=== PATIENT | male | born 1955 ===

== ENCOUNTER 2022-07-01 15:33 | Emergency (ER) | payer OTHER, SELFPAY ==
[2022-07-01] VITALS (9 sets, daily range): BP systolic 127–154; BP diastolic 72–96; PULSE 62–83; RESP 11–18; TEMP 36.6; O2SAT 98–100
--- NOTE | ~2022-07-01 | CT_ITS ---
EXAMINATION: CTA chest PE protocol DATE: 07/01/2022 19:45 INDICATION: left sided cp, sob, elevated dimer TECHNIQUE: Computed tomography angiography (CTA) of the chest was performed with 100 mL Omnipaque-350 intravenous contrast timed to evaluate the pulmonary arteries. Coronal maximum intensity projection 3D-reconstructions were created by the technologist. The dose-length product (DLP) was 174.96 mGy-cm. Automated exposure control and iterative reconstruction technique were employed. COMPARISON: None. FINDINGS: Lung parenchyma and airways: Dependent atelectasis. Left apical nodular opacity, likely apical scar o r intrapulmonary lymph node.. Pleura: Unremarkable. Thoracic inlet, axillae and chest wall: Unremarkable. Thoracic aorta: Normal. Mediastinum: Normal. Heart and pericardium: Mild cardiomegaly. Coronary artery calcifications: Absent. Upper abdomen: No significant finding. Incidental 5.1 cm right renal cyst. Bones: No acute osseous finding. Pulmonary arteries: Study quality: Adequate. No pulmonary emboli detected. IMPRESSION: No CT evidence of acute pulmonary embolus. Reviewed, dictated and finalized at location [facility]. [facility] OPERATION EVALUATION MANAGER
--- NOTE | 2022-07-01 15:34 | ECG_ITS ---
Measurements Intervals [place] Rate: 77 P: 69 AL: 173 QRS: 58 QRSD: 93 T: 49 QT: 371 QTc: 422 Interpretive Statements SINUS RHYTHM NONSPECIFIC T-WAVE ABNORMALITY BORDERLINE ECG NO PREVIOUS ECG AVAILABLE FOR COMPARISON Electronically Signed On 07-01-2022 18:06:51 SCREEN PRINTING PASTER by Kam Vines M.D.
[2022-07-01 15:52] LABS: Basophils Percent Auto 0.5 % (0.2-1.2); Eosinophils Absolute Auto 0.1 K/mm3 (0-0.3); Eosinophils Percent Auto 1.3 % (0-4.4); Hemoglobin 15.1 g/dL (14.0-18.0); Immature Granulocyte Absolute 0.01 K/mm3 (0.00-0.031); Immature Granulocyte Percent A 0.2 % (0-0.5); Lymphocytes Absolute Auto 1.67 K/mm3 (0.9-3.2); Mean Corpuscular HGB Conc 32.1 g/dl (32-36); Mean Corpuscular Hemoglobin 29.2 pg (26-34); Mean Corpuscular Volume 90.9 fl (80-100); Mean Platelet Volume 9.3 fl (7.4-10.4); Monocytes Absolute Auto 0.6 K/mm3 (0.1-0.6); Monocytes Percent Auto 9.7 % (2.6-8.5); Neutrophils Absolute Auto 3.6 K/mm3 (1.3-6.7); Neutrophils Percent Auto 60.3 % (45.5-73.1); Platelet Count Result 284 k/mm3 (150-375); Red Blood Count 5.17 M/mm3 (4.6-6.20); Red Cell Distribution Width 13.5 % (11.5-14.5)
[2022-07-01 16:04] LABS: Partial Thromboplastin Time 27.7 SECONDS (22.3-36.8); Prothrombin Time 12.6 Seconds (11.1-14.7)
[2022-07-01 16:06] LABS: Alanine Aminotransferase 36 U/L (6-50); Albumin Level 4.6 g/dL (3.5-5.1); Alkaline Phosphatase 70 U/L (38-126); Anion Gap 4 mmol/L (8-16); Aspartate Amino Transferase 30 U/L (17-59); Bilirubin,Total 0.5 mg/dL (0.2-1.3); Blood Urea Nitrogen 18 mg/dL (9-20); Calcium 9.1 mg/dL (8.4-10.2); Carbon Dioxide 30 mmol/L (22-30); Chloride 103 mmol/L (98-107); Estimated CRCL calculation 60 ml/min; Estimated Glomerular Filt Rate > 60; Glucose 104 mg/dL (65-110); Lipase 107 U/L (23-300); Potassium 3.9 mmol/L (3.4-5.0); Sodium 137 mmol/L (137-145)
[2022-07-01 16:16] LABS: Troponin I < 0.012 ng/mL (0.000-0.034)
[2022-07-01] MEDS: ASPIRIN 81 MG CHEWABLE TABLET 324 MG PO (17:36)
--- NOTE | 2022-07-01 18:17 | ED.CHESTPAIN ---
HPI - Chest Pain General Chief Complaint: Chest Pain Stated Complaint: chest pain Time Seen by Provider: 07/01/22 18:16 Source: patient Mode of arrival: ambulatory Limitations: no limitations History of Present Illness HPI narrative: This is a 66-year-old male that presents to the emergency department for chest pain ongoing over the last week. Reports a dull achy left-sided chest pain. Intermittently it is sharp. It is worse with certain movements and coughing. Reports over the last month he has been struggling with bronchitis. He has finished a round of steroids and antibiotics. He still does continue to have some cough. Reports he has been having some shortness of breath as well. He was seen at the urgent care and sent to the ER for further evaluation. Denies fevers or hemoptysis. Related Data Allergies Allergy/AdvReac Type Severity Reaction Status Date / Time No Known Allergies Allergy Verified 07/01/22 17:17 Review of Systems Review of Systems: CONSTITUTIONAL: Denies fever CARDIOVASCULAR: Reports chest pain. Denies edema. RESPIRATORY: Reports cough and dyspnea. All systems reviewed & are unremarkable except as noted in HPI and below PMFSH Past Medical History Medical History (Updated 07/01/22 @ 20:44 by Leyla Dale PA-C) History of hyperlipidemia History of hypertension Social History Social History (Updated 07/01/22 @ 18:56 by Leyla Dale PA-C) Smoking status: Former smoker Exam Narrative: GENERAL: Well-appearing, well-nourished, and in no acute distress. HEAD: Normocephalic, atraumatic. EYES: EOMI. ENT: Mucous membranes moist. CHEST: Clear to auscultation. No respiratory distress. No wheezes rales or rhonchi HEART: Regular rate and rhythm. No murmur heard. Normal peripheral pulses. EXTREMITIES: Normal range of motion. No edema. SKIN: Warm, dry, no rash. NEURO: No focal deficits. Alert and oriented x3. PSYCH: Normal mood and affect Course Course Emergency Course: Patient and family were updated on case findings. Patient resting comfortably. Vital Signs Vital signs: Vital Signs Temperature 97.8 F 07/01/22 15:38 Pulse Rate 83 07/01/22 15:38 Respiratory Rate 16 07/01/22 15:38 Blood Pressure 154/81 H 07/01/22 15:38 Pulse Oximetry 99 07/01/22 15:38 Oxygen Delivery Room Air 07/01/22 15:38 Temperature 97.8 F 07/01/22 15:38 Pulse Rate 65 07/01/22 19:32 Respiratory Rate 18 07/01/22 19:32 Blood Pressure 137/72 07/01/22 19:32 Pulse Oximetry 98 07/01/22 19:32 Oxygen Delivery Room Air 07/01/22 15:38 MDM - Chest Pain MDM Narrative Medical decision making narrative: Patient presents emergency department for chest pain ongoing over the last week. His pain does seem to be more musculoskeletal in nature as it is worse with movement. He has had no active chest pain while in the ED. His vitals are stable. He is afebrile and nontoxic-appearing. His lungs are clear on exam. CBC and metabolic panel without concerning findings. EKG without acute ST changes and baseline and 3-hour troponin are negative. His BNP is not elevated. His D-dimer was elevated, so CTA of the chest was obtained. No evidence for PE or acute cardiopulmonary abnormality. Patient and family were updated on case findings. Patient resting comfortably. He was instructed to have close follow-up with his primary care provider. He was given warnings to return to the ER Differential Diagnosis Differential diagnosis: Likely pneumothorax, atypical chest pain, st elevation myocardial infarction, costochondritis and other (PE, muscle strain) Lab Data Attestation: I reviewed the patient's lab results. 07/01/22 15:43 07/01/22 15:43 Labs: Lab Results 07/01/22 07/01/22 07/01/22 Range/Units 15:43 15:43 15:43 WBC 6.0 (4.5-10.0) K/mm3 RBC 5.17 (4.6-6.20) M/mm3 Hgb 15.1 (14.0-18.0) g/dL Hct 47.0 (42.0-52.0) % MCV 90.9 (80-100)
[2022-07-01 18:58] LABS: Troponin I < 0.012 ng/mL (0.000-0.034)
[2022-07-01 19:20] LABS: D Dimer 0.72 ug/mL (<0.48)
[2022-07-01 19:25] LABS: NT Pro B Type Natriuretic Pept < 11 pg/mL (5-100)
== END 2022-07-01 20:50 | disposition home or self-care (01) ==
PROVIDERS: Family Medicine; Emergency Provider Physician Assistant; PCP Internal Medicine
DX: R07.9 Chest pain, unspecified (principal); N28.1 Cyst of kidney, acquired; I10 Essential (primary) hypertension; E78.5 Hyperlipidemia, unspecified
CPT/HCPCS: 36415; 71275; 80053; 83690; 83880; 84484; 85025; 85380; 85610; 85730; 93005; 99284; A9270; Q9967